=== PATIENT | female | born 1935 | race Two or more races ===

== ENCOUNTER → 2024-09-10 | Outpatient (CLI) | payer MEDICARE, MEDICAID, SELFPAY ==
--- NOTE | 2024-09-10 10:04 | XR_ITS ---
Examination: Retroperitoneal ultrasound, complete Technique: Multiple high resolution grayscale images of the retroperitoneum obtained, including kidneys and bladder. Exam date and time:September 10, 2024 1015 hours INDICATIONS: Renal insufficiency on laboratory examination this week. FINDINGS: Right kidney 9.4 cm cortex 1.3 cm Left kidney 8.0 cm cortex 1.3 cm Mild to moderate bilateral renal parenchymal scar formation No hydronephrosis Unable to access the bladder as the patient is in a wheelchair IMPRESSION: Small kidneys with bilateral renal cortical thinning Mild to moderate bilateral renal parenchymal scar formation No hydronephrosis
[2024-09-10 10:53] LABS: Albumin, Serum 3.7 gm/dL (3.4-4.8); Anion Gap 11 (7-16); BUN/Creatinine Ratio 18 Ratio (12-20); Blood Urea Nitrogen 35 mg/dL (9-23); Calcium 9.1 mg/dL (8.3-10.6); Calcium (Corrected) 9.3 mg/dL (8.5-10.1); Carbon Dioxide 27.9 mMol/L (20.0-31.0); Chloride 108 mMol/L (98-107); Creatinine (Component) 1.9 mg/dL (0.6-1.3); Glucose 155 mg/dL (74-106); Osmolality,Calculated 303 (275-295); Phosphorous 3.9 mg/dL (2.4-5.1); Potassium 3.8 mMol/L (3.4-5.1); Sodium 147 mMol/L (136-145); eGFR 25 See Note
[2024-09-10 10:54] LABS: Vitamin D 25 Hydroxy Total 44.7 ng/mL (7.3-40.2)
[2024-09-10 11:25] LABS: Parathyroid Hormone Intact 116.5 pg/ml (18.5-88.0)
== END | disposition home or self-care (01) ==
LOC: CDIM 09:46 → COPL 09:48
PROVIDERS: PCP Pediatrics; Referring Provider Internal Medicine; Visit Provider Internal Medicine
DX: E11.8 Type 2 diabetes mellitus with unspecified complications (principal); I10 Essential (primary) hypertension; N17.8 Other acute kidney failure; N17.9 Acute kidney failure, unspecified
CPT/HCPCS: 36415; 76770; 80069; 82306; 82570; 83970